=== PATIENT | female | born 1985 | race Caucasian/White ===

== ENCOUNTER 2018-06-21 16:44 | Emergency (ER) | payer OTHER ==
[~2018-06-21] VITALS: Ht 165.1 cm; Wt 104.3 kg
[2018-06-21] MEDS ORDERED: Verotin-Gr Cap1 EACH PO (16:52)
[2018-06-21] MEDS ORDERED: UNISOM25 MG PO (16:52)
[2018-06-21] MEDS ORDERED: Hair, Skin & N1 EACH PO (16:52)
== END 2018-06-21 18:02 | disposition home or self-care (01) ==
LOC: ER 16:44
DX: S61.012A Laceration without foreign body of left thumb without damage to nail, initial encounter (principal); M19.90 Unspecified osteoarthritis, unspecified site; Z91.012 Allergy to eggs; Z91.038 Other insect allergy status; Z79.899 Other long term (current) drug therapy; W26.0XXA Contact with knife, initial encounter
CPT/HCPCS: 12001; 99282-25

== ENCOUNTER 2019-02-16 22:54 | Emergency (ER) | payer OTHER ==
[~2019-02-16 22:54] MED LIST: Hair, Skin & N1 EACH PO; UNISOM25 MG PO; Verotin-Gr Cap1 EACH PO
== END 2019-02-16 23:06 | disposition left against medical advice (07) ==
LOC: ER 22:54
DX: Z53.21 Procedure and treatment not carried out due to patient leaving prior to being seen by health care provider (principal)

== ENCOUNTER → 2019-03-16 | Outpatient (CLI) | payer OTHER ==
[2019-03-18 14:07] LABS: HPV 16 Negative (Negative); HPV 18 Negative (Negative); HPV OTHER HR TYPES Negative (Negative)
== END | disposition home or self-care (01) ==
LOC: LAB SHORT 12:08 → LAB 12:08
PROVIDERS: Obstetrics & Gynecology
DX: Z01.419 Encounter for gynecological examination (general) (routine) without abnormal findings (principal)
CPT/HCPCS: 87624; G0123

== ENCOUNTER → 2020-07-07 | Outpatient (CLI) | payer OTHER ==
[~2020-07-07] MED LIST changes: +ALDACTONE25 MG PO; +AMIT25 PO; +Amitriptyline H10 MG PO; +BANOPHEN25 MG PO; +BIOTIN1 MG PO; +BUTALB-ACETAMI1 EAC5 PO; +BUTALBITAL-ASA1 EACH PO; +CHOLESTYRAMI PO; +CLINGEL; +Camila0.35 MG PO; +EPINEPHRIN0.3 MG/0.1; +EPIPEN 2-P0.3 MG/0.1; +Erythromycin 2%30 GM; +FAMO10 PO; +Finacea50 GM; +KETO15TC; +MELATONIN5 M1 PO; +MULTIPLE VITAM1 EACH PO; +NAPR500 PO; +Naproxen375 M1 PO; +Naproxen375 MG PO; +Norco 5-325 Ta1 EACH PO; +PROM25 PO; +RIZATRIPTAN10 M3 PO; +RIZATRIPTAN10 MG; +RIZATRIPTAN5 MG PO; +SPIR25 PO; +TOPI25 PO; +[UNRECOGNIZED DRUG - OTHER] PO
== END | disposition home or self-care (01) ==
LOC: LAB EV 10:29 → LAB SHORT 10:29
DX: J02.9 Acute pharyngitis, unspecified (principal)
CPT/HCPCS: 87081

== ENCOUNTER 2020-08-27 17:36 | Emergency (ER) | payer OTHER ==
[~2020-08-27] VITALS: Ht 165.1 cm; Wt 108.9 kg
[~2020-08-27 17:36] MED LIST changes: -ALDACTONE25 MG PO; -AMIT25 PO; -Amitriptyline H10 MG PO; -BANOPHEN25 MG PO; -BIOTIN1 MG PO; -BUTALBITAL-ASA1 EACH PO; -CHOLESTYRAMI PO; -CLINGEL; -Camila0.35 MG PO; -EPIPEN 2-P0.3 MG/0.1; -Erythromycin 2%30 GM; -FAMO10 PO; -Finacea50 GM; -KETO15TC; -MULTIPLE VITAM1 EACH PO; -Naproxen375 M1 PO; -Naproxen375 MG PO; -RIZATRIPTAN10 MG; -RIZATRIPTAN5 MG PO; -SPIR25 PO; -TOPI25 PO; -[UNRECOGNIZED DRUG - OTHER] PO
[2020-08-27] MEDS ORDERED: AMIT25 PO (18:10)
[2020-09-04] MEDS ORDERED: BIOTIN1 MG PO (08:34)
[2020-09-04] MEDS ORDERED: [UNRECOGNIZED DRUG - OTHER] PO (08:35)
[2020-09-04] MEDS ORDERED: CHOLESTYRAMI PO (08:35)
[2020-09-04] MEDS ORDERED: BANOPHEN25 MG PO (08:35)
[2020-09-04] MEDS ORDERED: MULTIPLE VITAM1 EACH PO (08:36)
[2020-09-04] MEDS ORDERED: Naproxen375 M1 PO (08:36)
[2020-09-04] MEDS ORDERED: FAMO10 PO (08:36)
[2020-09-04] MEDS ORDERED: MELATONIN5 M1 PO (08:36)
[2020-09-04] MEDS ORDERED: NAPR500 PO (08:37)
[2020-09-04] MEDS ORDERED: RIZATRIPTAN5 MG PO (08:38)
[2020-09-04] MEDS ORDERED: Camila0.35 MG PO (08:38)
[2020-09-04] MEDS ORDERED: SPIR25 PO (08:39)
[2020-09-04] MEDS ORDERED: TOPI25 PO (08:39)
[2020-12-08] MEDS ORDERED: AMIT25 PO (11:50)
[2020-12-08] MEDS ORDERED: Amitriptyline H10 MG PO (11:50)
[2020-12-08] MEDS ORDERED: CLINGEL (11:51)
[2020-12-08] MEDS ORDERED: EPIPEN 2-P0.3 MG/0.1 (11:51)
[2020-12-08] MEDS ORDERED: BUTALBITAL-ASA1 EACH PO (11:51)
[2020-12-08] MEDS ORDERED: Erythromycin 2%30 GM (11:52)
[2020-12-08] MEDS ORDERED: Finacea50 GM (11:52)
[2020-12-08] MEDS ORDERED: Naproxen375 MG PO (11:53)
[2020-12-08] MEDS ORDERED: MELATONIN5 M1 PO (11:53)
[2020-12-08] MEDS ORDERED: KETO15TC (11:53)
[2020-12-08] MEDS ORDERED: RIZATRIPTAN10 MG (11:54)
[2020-12-08] MEDS ORDERED: ALDACTONE25 MG PO (11:55)
== END 2020-08-27 18:38 | disposition home or self-care (01) ==
LOC: ER 17:36
DX: S63.501A Unspecified sprain of right wrist, initial encounter (principal); Z79.899 Other long term (current) drug therapy; Z91.030 Bee allergy status; Z91.012 Allergy to eggs; X50.1XXA Overexertion from prolonged static or awkward postures, initial encounter
CPT/HCPCS: 73610; 99283-25

== ENCOUNTER 2020-09-11 06:27 | Day surgery (SDC) | payer OTHER ==
[~2020-09-11] VITALS: Ht 165.1 cm; Wt 109.6 kg
[~2020-09-11 06:27] MED LIST changes: +AMIT25 PO; +BANOPHEN25 MG PO; +BIOTIN1 MG PO; +CHOLESTYRAMI PO; +Camila0.35 MG PO; +FAMO10 PO; +MULTIPLE VITAM1 EACH PO; +Naproxen375 M1 PO; +RIZATRIPTAN5 MG PO; +SPIR25 PO; +TOPI25 PO; +[UNRECOGNIZED DRUG - OTHER] PO
[2020-09-11] MEDS ORDERED: Amitriptyline H10 MG PO (07:24)
--- NOTE | 2020-09-11 08:10 | NUR ---
09/11/20 0810 Altaf Anton 2% LIDOCAINE WITH EPI 1:100,000 DILUTED WITH 0.9% INJ SALINE 1:1 TO ACHIEVE SOLUTION OF 1% LIDOCAINE WITH EPI 1:200,000.
[2020-12-08] MEDS ORDERED: Amitriptyline H10 MG PO (11:50)
[2020-12-08] MEDS ORDERED: AMIT25 PO (11:50)
[2020-12-08] MEDS ORDERED: BUTALBITAL-ASA1 EACH PO (11:51)
[2020-12-08] MEDS ORDERED: CLINGEL (11:51)
[2020-12-08] MEDS ORDERED: EPIPEN 2-P0.3 MG/0.1 (11:51)
[2020-12-08] MEDS ORDERED: Finacea50 GM (11:52)
[2020-12-08] MEDS ORDERED: Erythromycin 2%30 GM (11:52)
[2020-12-08] MEDS ORDERED: MELATONIN5 M1 PO (11:53)
[2020-12-08] MEDS ORDERED: KETO15TC (11:53)
[2020-12-08] MEDS ORDERED: Naproxen375 MG PO (11:53)
[2020-12-08] MEDS ORDERED: RIZATRIPTAN10 MG (11:54)
[2020-12-08] MEDS ORDERED: ALDACTONE25 MG PO (11:55)
== END 2020-09-11 10:50 | disposition home or self-care (01) ==
LOC: ORSCSDS 06:27
PROVIDERS: Otolaryngology
PROC: 09BL8ZZ Excision of Nasal Turbinate, Via Natural or Artificial Opening Endoscopic (ICD-10-PCS; principal; 2020-09-11 07:30)
PROC: 09BM0ZZ Excision of Nasal Septum, Open Approach (ICD-10-PCS; principal; 2020-09-11 07:30)
DX: J34.2 Deviated nasal septum (principal); J34.3 Hypertrophy of nasal turbinates; F41.9 Anxiety disorder, unspecified; E66.01 Morbid (severe) obesity due to excess calories; Z68.41 Body mass index [BMI] 40.0-44.9, adult; Z79.899 Other long term (current) drug therapy
CPT/HCPCS: J0171; J1100; J2250; J2405; J2704; J2765; J3010; J7120

== ENCOUNTER 2020-12-15 09:33 | Day surgery (SDC) | payer OTHER ==
[~2020-12-15] VITALS: Ht 165.1 cm; Wt 110.5 kg
[~2020-12-15 09:33] MED LIST changes: +ALDACTONE25 MG PO; +Amitriptyline H10 MG PO; +BUTALBITAL-ASA1 EACH PO; +CLINGEL; +EPIPEN 2-P0.3 MG/0.1; +Erythromycin 2%30 GM; +Finacea50 GM; +KETO15TC; +Naproxen375 MG PO; +RIZATRIPTAN10 MG
== END 2020-12-15 11:20 | disposition home or self-care (01) ==
LOC: ORSCSDS 09:33
PROVIDERS: Internal Medicine Gastroenterology
PROC: 0DB68ZX Excision of Stomach, Via Natural or Artificial Opening Endoscopic, Diagnostic (ICD-10-PCS; principal; 2020-12-15 11:15)
PROC: 0DB58ZX Excision of Esophagus, Via Natural or Artificial Opening Endoscopic, Diagnostic (ICD-10-PCS; principal; 2020-12-15 11:15)
PROC: 0D758ZZ Dilation of Esophagus, Via Natural or Artificial Opening Endoscopic (ICD-10-PCS; principal; 2020-12-15 11:15)
DX: K21.00 Gastro-esophageal reflux disease with esophagitis, without bleeding (principal); K22.10 Ulcer of esophagus without bleeding; R19.4 Change in bowel habit; R13.10 Dysphagia, unspecified; K44.9 Diaphragmatic hernia without obstruction or gangrene; Z79.899 Other long term (current) drug therapy
CPT/HCPCS: 88305; 88312; 88342; C1726; J2250; J2704; J7120

== ENCOUNTER 2021-02-16 10:26 | Emergency (ER) | payer OTHER ==
[~2021-02-16] VITALS: Ht 165.1 cm; Wt 108.9 kg
[2021-02-16] MEDS ORDERED: TOPI50 PO (12:30)
[2021-02-16] MEDS ORDERED: CEFD300 PO (12:30)
[2021-02-16] MEDS ORDERED: VENL37.5 PO (12:31)
== END 2021-02-16 13:58 | disposition home or self-care (01) ==
LOC: ER 10:26
DX: H66.92 Otitis media, unspecified, left ear (principal); Z91.038 Other insect allergy status; Z91.048 Other nonmedicinal substance allergy status; Z88.8 Allergy status to other drugs, medicaments and biological substances; Z91.02 Food additives allergy status; Z91.012 Allergy to eggs; Z79.899 Other long term (current) drug therapy
CPT/HCPCS: 70487; 99283-25; Q9967

== ENCOUNTER 2021-05-03 07:23 | Day surgery (SDC) | payer OTHER ==
[~2021-05-03] VITALS: Ht 165.1 cm; Wt 108.0 kg
[~2021-05-03 07:23] MED LIST changes: +BABYBIG100 MG INJ; +CEFD300 PO; +HAIR, SKIN AND1 EAC3 PO; +OMEP20ER PO; +TOPI50 PO; +VENL37.5 PO; +Vitamin C100 M1 PO
--- NOTE | 2021-05-03 08:28 | NUR ---
05/03/21 0828 Milagro Lopez History, Chart, Medications and Allergies reviewed before start of procedure. Patient confirms NPO status and agrees with scheduled surgery. 3-LEAD EKG REVIEWED WITH PHYSICIAN PRIOR TO START OF PROCEDURE. MONITOR INTACT WITH CONTINUOUS PULSE OXIMETRY AND INTERMITTENT BP. PATIENT DETERMINED TO BE ASA APPROPRIATE FOR PROPOFOL SEDATION PRIOR TO START OF PROCEDURE BY DR. VAZQUEZ
--- NOTE | 2021-05-03 09:56 | NUR ---
Patient up to Ambulate independently. Gait steady. Discharge instructions reviewed with patient. Patient verbalizes understanding. Copy given to patient to take home. Patient States Post-Procedure ride home has been arranged. Discharged via wheelchair to private car for ride home. ALL BELONINGS RETURNED TO PATIENT.
== END 2021-05-03 23:30 | disposition home or self-care (01) ==
LOC: ORSCMMR 07:23 → ORD 09:00 → ORSCSDS 11:15 → ORD 11:15 → ORSCMMR 23:30
PROVIDERS: Student in an Organized Health Care Education/Training Program
PROC: 0DB48ZX Excision of Esophagogastric Junction, Via Natural or Artificial Opening Endoscopic, Diagnostic (ICD-10-PCS; principal; 2021-05-03 08:45)
PROC: 0DB58ZX Excision of Esophagus, Via Natural or Artificial Opening Endoscopic, Diagnostic (ICD-10-PCS; principal; 2021-05-03 08:45)
PROC: 0DB78ZX Excision of Stomach, Pylorus, Via Natural or Artificial Opening Endoscopic, Diagnostic (ICD-10-PCS; principal; 2021-05-03 08:45)
PROC: 0DB98ZX Excision of Duodenum, Via Natural or Artificial Opening Endoscopic, Diagnostic (ICD-10-PCS; principal; 2021-05-03 08:45)
DX: K21.9 Gastro-esophageal reflux disease without esophagitis (principal); R13.10 Dysphagia, unspecified; K20.90 Esophagitis, unspecified without bleeding; K44.9 Diaphragmatic hernia without obstruction or gangrene; K29.70 Gastritis, unspecified, without bleeding; Z79.899 Other long term (current) drug therapy
CPT/HCPCS: 88305; 88342; J2250; J2704; J7120

== ENCOUNTER → 2021-10-31 | Outpatient (CLI) | payer OTHER | END | disposition home or self-care (01) | LOC: LAB 13:10 → LAB SHORT 13:10 | DX: G43.909 Migraine, unspecified, not intractable, without status migrainosus (principal) | CPT/HCPCS: 87086 ==

== ENCOUNTER → 2022-04-29 | Outpatient (CLI) | payer OTHER ==
[2022-04-29 14:16] LABS: Candida species (DNA Probe) Negative (NEGATIVE); G. vaginalis (DNA Probe) Negative (NEGATIVE); T. vaginalis (DNA Probe) Negative (NEGATIVE)
== END | disposition home or self-care (01) ==
LOC: LAB 10:04 → LAB SHORT 10:04
PROVIDERS: Obstetrics & Gynecology
DX: N76.0 Acute vaginitis (principal)
CPT/HCPCS: 87480; 87510; 87660

== ENCOUNTER 2022-10-22 10:05 | Observation (INO) | payer OTHER ==
[~2022-10-22] VITALS: Ht 162.6 cm; Wt 114.0 kg
[2022-10-22] VITALS (19 sets, daily range): BP systolic 140–183; BP diastolic 68–96
[2022-10-22 10:49] LABS: BASOPHILS ABSOLUTE AUTO 0.02 K/mm3 (0.00-0.23); BASOPHILS PERCENT AUTO 0 % (0-2); EOSINOPHILS ABSOLUTE AUTO 0.03 K/mm3 (0.00-0.68); EOSINOPHILS PERCENT AUTO 0 % (0-6); Hematocrit 36.9 % (33.0-51.0); Hemoglobin 12.5 g/dL (11.5-16.0); IMMATURE GRAN ABSOLUTE AUTO 0.03 K/mm3 (0.00-0.10); IMMATURE GRAN PERCENT AUTO 0 % (0-1); LYMPHOCYTES PERCENT AUTO 23 % (21-46); MONOCYTES ABSOLUTE AUTO 0.48 K/mm3 (0.16-1.47); MONOCYTES PERCENT AUTO 7 % (4-13); Mean Corpuscular HGB 28.7 pg (26.0-34.0); Mean Corpuscular HGB Conc 33.9 g/dL (31.5-36.5); Mean Corpuscular Volume 85 fL (80-100); Mean Platelet Volume 9.9 fL (9.1-12.4); NEUTROPHILS PERCENT AUTO 69 % (41-73); Platelet Count 167 K/mm3 (150-400); RDW Coefficient Variation 12.8 % (11.7-14.2); RDW Standard Deviation 39.3 fL (35.1-46.3); Red Blood Cell Count 4.36 M/mm3 (3.80-5.20); White Blood Cell Count 6.86 K/mm3 (4.00-11.30)
[2022-10-22 11:06] LABS: Albumin, Blood 2.3 g/dL (3.4-5.0); Albumin/Globulin Ratio 0.6 (0.8-1.8); Bilirubin, Total 0.1 mg/dL (0.1-1.0); Bun/Creatinine Ratio 19.3 (12.0-20.0); Calcium, Blood 8.6 mg/dL (8.5-10.1); Creatinine, Blood 0.47 mg/dL (0.40-1.00); Globulin, Blood 3.6 g/dL (2.2-4.0); Potassium, Blood 3.6 mmol/L (3.5-5.5); Total Protein, Blood 5.9 g/dL (6.4-8.2)
[2022-10-22 11:30] LABS: Creatinine, Urine Random 71.3 mg/dL (27.00-270.00); Protein, Urine Random 12.8 mg/dL (0.0-11.9); Protein/Creat Ratio, Ur Random 0.2
--- NOTE | 2022-10-22 14:26 | NUR ---
PT DECLIING IV SALINE LOCK UNTIL SHE SPEAKS WITH DR PANIAGUA, OR IF HER BP GETS TO SEVERE RANGE.
--- NOTE | 2022-10-22 16:24 | NUR ---
BP RETAKEN, PT HAD BEEN MOVING AND LEGS CROSSED.
[2022-10-22] MEDS ORDERED: LANS30EC PO (16:33)
[2022-10-23 00:23] VITALS: BP 134/64
--- NOTE | 2022-10-23 00:45 | NUR ---
RN DISCUSSED PROVIDER ORDER FOR IV PLACEMENT. PT DECLINES AT THIS TIME
[2022-10-23 05:14] VITALS: BP 139/74
[2022-10-23 05:16] LABS: BASOPHILS ABSOLUTE AUTO 0.02 K/mm3 (0.00-0.23); BASOPHILS PERCENT AUTO 0 % (0-2); EOSINOPHILS ABSOLUTE AUTO 0.04 K/mm3 (0.00-0.68); EOSINOPHILS PERCENT AUTO 1 % (0-6); Hematocrit 36.2 % (33.0-51.0); IMMATURE GRAN ABSOLUTE AUTO 0.04 K/mm3 (0.00-0.10); IMMATURE GRAN PERCENT AUTO 1 % (0-1); LYMPHOCYTES ABSOLUTE AUTO 1.64 K/mm3 (0.84-5.20); LYMPHOCYTES PERCENT AUTO 23 % (21-46); MONOCYTES ABSOLUTE AUTO 0.59 K/mm3 (0.16-1.47); MONOCYTES PERCENT AUTO 8 % (4-13); Mean Corpuscular HGB 28.8 pg (26.0-34.0); Mean Corpuscular HGB Conc 33.1 g/dL (31.5-36.5); Mean Corpuscular Volume 87 fL (80-100); Mean Platelet Volume 9.9 fL (9.1-12.4); NEUTROPHILS ABSOLUTE AUTO 4.93 K/mm3 (1.96-9.15); NEUTROPHILS PERCENT AUTO 68 % (41-73); Platelet Count 158 K/mm3 (150-400); RDW Coefficient Variation 12.9 % (11.7-14.2); RDW Standard Deviation 40.6 fL (35.1-46.3); Red Blood Cell Count 4.17 M/mm3 (3.80-5.20); White Blood Cell Count 7.26 K/mm3 (4.00-11.30)
[2022-10-23 05:53] LABS: Albumin, Blood 2.3 g/dL (3.4-5.0); Albumin/Globulin Ratio 0.7 (0.8-1.8); Bilirubin, Total 0.2 mg/dL (0.1-1.0); Bun/Creatinine Ratio 21.5 (12.0-20.0); Calcium, Blood 8.7 mg/dL (8.5-10.1); Creatinine, Blood 0.56 mg/dL (0.40-1.00); Globulin, Blood 3.3 g/dL (2.2-4.0); Total Protein, Blood 5.6 g/dL (6.4-8.2)
[2022-10-23 06:07] LABS: Protein, Urine Random 11.1 mg/dL (0.0-11.9)
[2022-10-23 06:09] VITALS: BP 140/66
[2022-10-23 06:10] LABS: Creatinine, Urine Random 44.1 mg/dL (27.00-270.00); Protein/Creat Ratio, Ur Random 0.3
[2022-10-23 08:15] VITALS: BP 147/70
== END 2022-10-23 10:25 | disposition home or self-care (01) ==
LOC: OBS 10:05 → BC 10:07 → OBS 12:49 → BC 12:50
PROVIDERS: ADMIT Obstetrics & Gynecology
DX: O10.913 Unspecified pre-existing hypertension complicating pregnancy, third trimester (principal); O24.419 Gestational diabetes mellitus in pregnancy, unspecified control; Z3A.34 34 weeks gestation of pregnancy; O99.891 Other specified diseases and conditions complicating pregnancy; R51.9 Headache, unspecified; R12 Heartburn; O99.353 Diseases of the nervous system complicating pregnancy, third trimester; G47.00 Insomnia, unspecified
CPT/HCPCS: 36415; 59025; 80053; 81003; 82570; 82947; 84156; 85025; A9270; G0378

== ENCOUNTER 2022-11-08 07:14 | Inpatient (IN) | payer OTHER ==
[~2022-11-08] VITALS: Ht 165.1 cm; Wt 115.5 kg
[2022-11-08] VITALS (7 sets, daily range): BP systolic 135–170; BP diastolic 68–96
[~2022-11-08 07:14] MED LIST changes: +LANS30EC PO
[2022-11-08 09:17] LABS: BASOPHILS ABSOLUTE AUTO 0.02 K/mm3 (0.00-0.23); BASOPHILS PERCENT AUTO 0 % (0-2); EOSINOPHILS ABSOLUTE AUTO 0.06 K/mm3 (0.00-0.68); EOSINOPHILS PERCENT AUTO 1 % (0-6); Hematocrit 36.5 % (33.0-51.0); Hemoglobin 12.4 g/dL (11.5-16.0); Mean Corpuscular HGB 28.8 pg (26.0-34.0); Mean Corpuscular Volume 85 fL (80-100); Mean Platelet Volume 10.5 fL (9.1-12.4); Platelet Count 175 K/mm3 (150-400); RDW Coefficient Variation 13.2 % (11.7-14.2); RDW Standard Deviation 40.6 fL (35.1-46.3); Red Blood Cell Count 4.31 M/mm3 (3.80-5.20); White Blood Cell Count 7.02 K/mm3 (4.00-11.30)
[2022-11-08 09:19] LABS: IMMATURE GRAN ABSOLUTE AUTO 0.06 K/mm3 (0.00-0.10); IMMATURE GRAN PERCENT AUTO 1 % (0-1); LYMPHOCYTES ABSOLUTE AUTO 1.79 K/mm3 (0.84-5.20); LYMPHOCYTES PERCENT AUTO 26 % (21-46); MONOCYTES ABSOLUTE AUTO 0.43 K/mm3 (0.16-1.47); MONOCYTES PERCENT AUTO 6 % (4-13); NEUTROPHILS ABSOLUTE AUTO 4.66 K/mm3 (1.96-9.15); NEUTROPHILS PERCENT AUTO 66 % (41-73)
--- NOTE | 2022-11-08 22:34 | NUR ---
PT REQUESTING THAT LABS AND MATERNAL SCREEN BE DRAWN TOMORROW, 11/09/22, AT 0700. RN EDUCATED PT ON IMPORTANCE OF RHOGAM . PT WOULD LIKE TO MOVE FORWARD WITH LABS AT 0700 AND RHOGAM AFTER MATERNAL SCREEN IS DRAWN.
[2022-11-09] VITALS (9 sets, daily range): BP systolic 121–169; BP diastolic 58–81
--- NOTE | 2022-11-09 03:42 | NUR ---
PT COMPLAINING OF UC CRAMPS. RN OFFERED HEATING PAD, PT DECLINES. RN SUGGESTED PT TRY VOIDING, PT AGREEABLE.
[2022-11-09 05:14] LABS: Hematocrit 31.7 % (33.0-51.0); Hemoglobin 10.6 g/dL (11.5-16.0); Mean Corpuscular HGB 28.8 pg (26.0-34.0); Mean Corpuscular HGB Conc 33.4 g/dL (31.5-36.5); Mean Corpuscular Volume 86 fL (80-100); Mean Platelet Volume 10.4 fL (9.1-12.4); Platelet Count 167 K/mm3 (150-400); RDW Coefficient Variation 13.2 % (11.7-14.2); RDW Standard Deviation 41.1 fL (35.1-46.3); Red Blood Cell Count 3.68 M/mm3 (3.80-5.20); White Blood Cell Count 9.51 K/mm3 (4.00-11.30)
--- NOTE | 2022-11-09 13:26 | NUR ---
11/09/22 0800 AND KIDS CAME IN TO JOIN PT FOR BREAKFAST, PT NOTICABLY MORE ANXIOUS WITH KIDS AROUND BABY AND IRRITATED WHEN BP CUFF INFLATING , SHE HAD TO BE TOLD MULTPLE TIMES TO RELAX ARM OR IT WOULD CONTINUE TO PUMP UP, AND AFTER BP DONE SHE RIPPED CUFF OFF HER ARM. 0950 ENCOURAGED PT YO TAKE HER OWN LABETOLOL EARLY, SHE SAID HER DOSE WAS DUE AT 11AM, AND BOYS TO GO HOME FOR AWHILE AND SHE PLANS TO REST.
[2022-11-09 14:00] LABS: Alanine Aminotransfer (ALT/SGP 30 U/L (12-78); Albumin, Blood 2.1 g/dL (3.4-5.0); Albumin/Globulin Ratio 0.7 (0.8-1.8); Alk Phos 162 U/L (50-136); Anion Gap 7 mmol/L (6-16); Aspartate Aminotrans (AST/SGOT 29 U/L (12-37); Bilirubin, Total <0.1 mg/dL (0.1-1.0); Blood Urea Nitrogen 13 mg/dL (8-24); Bun/Creatinine Ratio 21.6 (12.0-20.0); CO2, Blood 24 mmol/L (21-32); Calcium, Blood 8.9 mg/dL (8.5-10.1); Chloride, Blood 109 mmol/L (98-108); Glomerular Filtration Rate 120 (60-); Glucose, Blood 128 mg/dL (70-99); Potassium, Blood 4.1 mmol/L (3.5-5.5); Sodium, Blood 140 mmol/L (136-145); Total Protein, Blood 5.1 g/dL (6.4-8.2)
== END 2022-11-09 18:58 | disposition home or self-care (01) | DRG 807 ==
LOC: OBS 07:14 → BC 07:22
PROVIDERS: ADMIT Obstetrics & Gynecology
PROC: 10E0XZZ Delivery of Products of Conception, External Approach (ICD-10-PCS; principal; 2022-11-08)
PROC: 0HQ9XZZ Repair Perineum Skin, External Approach (ICD-10-PCS; 2022-11-08)
PROC: 10907ZC Drainage of Amniotic Fluid, Therapeutic from Products of Conception, Via Natural or Artificial Opening (ICD-10-PCS; 2022-11-08)
DX: O13.4 Gestational [pregnancy-induced] hypertension without significant proteinuria, complicating childbirth (principal); Z37.0 Single live birth; O99.214 Obesity complicating childbirth; E66.9 Obesity, unspecified; O24.429 Gestational diabetes mellitus in childbirth, unspecified control; O34.211 Maternal care for low transverse scar from previous cesarean delivery; O99.344 Other mental disorders complicating childbirth; F41.9 Anxiety disorder, unspecified; F32.A Depression, unspecified; O70.0 First degree perineal laceration during delivery; Z3A.37 37 weeks gestation of pregnancy; Z67.41 Type O blood, Rh negative; Z90.49 Acquired absence of other specified parts of digestive tract; Z98.890 Other specified postprocedural states; Z88.0 Allergy status to penicillin; Z88.8 Allergy status to other drugs, medicaments and biological substances; Z91.030 Bee allergy status; Z91.012 Allergy to eggs; Z91.038 Other insect allergy status; Z79.899 Other long term (current) drug therapy; Z79.51 Long term (current) use of inhaled steroids; Z79.82 Long term (current) use of aspirin; Z86.19 Personal history of other infectious and parasitic diseases; Z91.014 Allergy to mammalian meats; Z85.820 Personal history of malignant melanoma of skin
CPT/HCPCS: 36415; 80053; 85025; 85027; 85460; 86850; 86900; 86901; 96372; A9270; C1751; J0690; J1885; J2210; J2590; J2791; J3010; J7120

== ENCOUNTER 2023-04-14 09:21 | Day surgery (SDC) | payer OTHER ==
[~2023-04-14] VITALS: Ht 165.1 cm; Wt 105.8 kg
[2023-04-14] MEDS ORDERED: VENL75ER PO (10:00)
[2023-04-14 11:51] VITALS: BP 138/87
== END 2023-04-14 11:27 | disposition home or self-care (01) ==
LOC: ORSCSDS 09:21
PROVIDERS: Internal Medicine Gastroenterology
PROC: 0DB58ZX Excision of Esophagus, Via Natural or Artificial Opening Endoscopic, Diagnostic (ICD-10-PCS; principal; 2023-04-14 10:30)
PROC: 0D757ZZ Dilation of Esophagus, Via Natural or Artificial Opening (ICD-10-PCS; principal; 2023-04-14 10:30)
DX: K22.70 Barrett's esophagus without dysplasia (principal); K21.9 Gastro-esophageal reflux disease without esophagitis; R13.10 Dysphagia, unspecified; R19.4 Change in bowel habit; F41.9 Anxiety disorder, unspecified; J45.909 Unspecified asthma, uncomplicated; Z68.39 Body mass index [BMI] 39.0-39.9, adult; Z79.899 Other long term (current) drug therapy
CPT/HCPCS: 88305; J2001; J2704; J7120

== ENCOUNTER → 2023-06-24 | Outpatient (CLI) | payer OTHER ==
[~2023-06-24] MED LIST changes: +VENL75ER PO
== END ==
LOC: LAB SHORT 14:25 → LAB 14:25
DX: L01.02 Bockhart's impetigo (principal)
CPT/HCPCS: 88305

== ENCOUNTER 2023-10-15 10:39 | Day surgery (SDC) | payer OTHER ==
[~2023-10-15] VITALS: Ht 165.1 cm; Wt 109.8 kg
[2023-10-15] MEDS ORDERED: Lactated Ringer's 1,000 ML IV ONE ×2 (11:36→11:45)
[2023-10-15] MEDS ORDERED: NS 50 ML IV ONE (11:36)
[2023-10-15] MEDS ORDERED: CeFAZolin Sodium 2,000 MG VIAL ONE (11:36)
[2023-10-15] MEDS ORDERED: FentaNYL Citrate 50 MCG/ML 2 ML Injection ONE ×2 (12:42→13:48)
[2023-10-15] MEDS ORDERED: Midazolam HCl 1MG / ML 2ML Vial ONE (12:42)
[2023-10-15] MEDS ORDERED: propofoL 20 ML IV ONE ×2 (12:42→13:13)
[2023-10-15] MEDS ORDERED: Lidocaine HCl 2% 10 ML SDA ONE (12:54)
[2023-10-15] MEDS ORDERED: Ondansetron HCl 2 MG / ML 2ML Vial ONE ×2 (13:48→14:30)
--- NOTE | 2023-10-15 13:55 | NUR ---
10/15/23 1355 FARA ROUSE NAUSEA IS GONE AFTER DRINKING WATER.
[2023-10-15 14:58] VITALS: BP 160/105
== END 2023-10-15 14:54 | disposition home or self-care (01) ==
LOC: ORSCSDS 10:39
PROVIDERS: Orthopaedic Surgery
PROC: 01N54ZZ Release Median Nerve, Percutaneous Endoscopic Approach (ICD-10-PCS; principal; 2023-10-15 11:45)
PROC: 0LN50ZZ Release Right Lower Arm and Wrist Tendon, Open Approach (ICD-10-PCS; principal; 2023-10-15 11:45)
PROC: 0LN70ZZ Release Right Hand Tendon, Open Approach (ICD-10-PCS; principal; 2023-10-15 11:45)
DX: G56.03 Carpal tunnel syndrome, bilateral upper limbs (principal); M65.311 Trigger thumb, right thumb; M65.4 Radial styloid tenosynovitis [de Quervain]; I10 Essential (primary) hypertension; J45.909 Unspecified asthma, uncomplicated; K21.9 Gastro-esophageal reflux disease without esophagitis; G47.33 Obstructive sleep apnea (adult) (pediatric); F41.9 Anxiety disorder, unspecified; E66.01 Morbid (severe) obesity due to excess calories; Z68.41 Body mass index [BMI] 40.0-44.9, adult; Z79.899 Other long term (current) drug therapy
CPT/HCPCS: J0690; J2001; J2250; J2405; J2704; J3010; J7120

== ENCOUNTER → 2024-03-09 | Outpatient (CLI) | payer OTHER ==
[2024-03-18 08:17] LABS: HPV HIGH RISK BY TMA Not Detected; HPV SOURCE Cervical
== END ==
LOC: LAB SHORT 15:11 → LAB 15:11
PROVIDERS: Advanced Practice Midwife
DX: Z01.419 Encounter for gynecological examination (general) (routine) without abnormal findings (principal)
CPT/HCPCS: 87624; G0123

== ENCOUNTER → 2024-07-16 | Outpatient (CLI) | payer OTHER ==
[2024-07-16 08:14] LABS: BASOPHILS ABSOLUTE AUTO 0.02 K/mm3 (0.00-0.23); BASOPHILS PERCENT AUTO 0 % (0-2); EOSINOPHILS ABSOLUTE AUTO 0.02 K/mm3 (0.00-0.68); EOSINOPHILS PERCENT AUTO 0 % (0-6); Hematocrit 42.8 % (33.0-51.0); Hemoglobin 14.5 g/dL (11.5-16.0); IMMATURE GRAN ABSOLUTE AUTO 0.02 K/mm3 (0.00-0.10); IMMATURE GRAN PERCENT AUTO 0 % (0-1); LYMPHOCYTES PERCENT AUTO 14 % (21-46); MONOCYTES ABSOLUTE AUTO 0.22 K/mm3 (0.16-1.47); MONOCYTES PERCENT AUTO 3 % (4-13); Mean Corpuscular HGB 28.4 pg (26.0-34.0); Mean Corpuscular HGB Conc 33.9 g/dL (31.5-36.5); Mean Corpuscular Volume 84 fL (80-100); Mean Platelet Volume 9.1 fL (9.1-12.4); NEUTROPHILS ABSOLUTE AUTO 6.54 K/mm3 (1.96-9.15); NEUTROPHILS PERCENT AUTO 82 % (41-73); Platelet Count 227 K/mm3 (150-400); RDW Coefficient Variation 12.8 % (11.7-14.2); RDW Standard Deviation 38.9 fL (35.1-46.3); Red Blood Cell Count 5.11 M/mm3 (3.80-5.20); White Blood Cell Count 7.92 K/mm3 (4.00-11.30)
[2024-07-16 08:44] LABS: Albumin, Blood 4.1 g/dL (3.4-5.0); Albumin/Globulin Ratio 1.2 (0.8-1.8); Bilirubin, Total 0.4 mg/dL (0.1-1.0); Bun/Creatinine Ratio 18.1 (12.0-20.0); Calcium, Blood 8.9 mg/dL (8.5-10.1); Creatinine, Blood 0.72 mg/dL (0.40-1.00); Globulin, Blood 3.4 g/dL (2.2-4.0); Potassium, Blood 3.6 mmol/L (3.5-5.5); Total Protein, Blood 7.5 g/dL (6.4-8.2)
== END | disposition home or self-care (01) ==
LOC: LAB 08:07 → LAB SHORT 08:07
PROVIDERS: Emergency Medicine
DX: K92.1 Melena (principal)
CPT/HCPCS: 80053; 83690; 85025

== ENCOUNTER → 2025-04-05 | Outpatient (CLI) | payer OTHER ==
[~2025-04-05] MED LIST changes: +CEPH500 PO; +ONDA4ODT MM; +PHENA200 PO
[2025-04-05 10:49] LABS: BASOPHILS ABSOLUTE AUTO 0.02 K/mm3 (0.00-0.23); BASOPHILS PERCENT AUTO 0 % (0-2); EOSINOPHILS ABSOLUTE AUTO 0.02 K/mm3 (0.00-0.68); EOSINOPHILS PERCENT AUTO 0 % (0-6); Hematocrit 42.6 % (33.0-51.0); Hemoglobin 14.6 g/dL (11.5-16.0); IMMATURE GRAN ABSOLUTE AUTO 0.02 K/mm3 (0.00-0.10); IMMATURE GRAN PERCENT AUTO 0 % (0-1); LYMPHOCYTES ABSOLUTE AUTO 1.27 K/mm3 (0.84-5.20); LYMPHOCYTES PERCENT AUTO 16 % (21-46); MONOCYTES ABSOLUTE AUTO 0.33 K/mm3 (0.16-1.47); MONOCYTES PERCENT AUTO 4 % (4-13); Mean Corpuscular HGB Conc 34.3 g/dL (31.5-36.5); Mean Corpuscular Volume 82 fL (80-100); NEUTROPHILS ABSOLUTE AUTO 6.53 K/mm3 (1.96-9.15); NEUTROPHILS PERCENT AUTO 80 % (41-73); NRBC ABSOLUTE 0.00 K/mm3 (0.00-0.02); NRBC Auto 0.0 /100 WBC (0.0-0.2); Platelet Count 259 K/mm3 (150-400); RDW Coefficient Variation 12.9 % (11.7-14.2); RDW Standard Deviation 38.5 fL (35.1-46.3)
[2025-04-05 10:59] LABS: Alanine Aminotransfer (ALT/SGP 58.0 U/L (12-78); Albumin, Blood 4.2 g/dL (3.4-5.0); Albumin/Globulin Ratio 1.2 (0.8-1.8); Anion Gap 15.0 mmol/L (3-11); Aspartate Aminotrans (AST/SGOT 25.0 U/L (12-37); Bilirubin, Total 0.4 mg/dL (0.1-1.0); Blood Urea Nitrogen 11.0 mg/dL (8-24); CO2, Blood 26.0 mmol/L (21-32); Calcium, Blood 9.2 mg/dL (8.5-10.1); Chloride, Blood 102.0 mmol/L (98-108); Creatinine, Blood 0.6 mg/dL (0.40-1.00); Globulin, Blood 3.5 g/dL (2.2-4.0); Glucose, Blood 112.0 mg/dL (70-99); Potassium, Blood 3.5 mmol/L (3.5-5.5); Sodium, Blood 139.0 mmol/L (136-145); Total Protein, Blood 7.7 g/dL (6.4-8.2)
== END ==
LOC: LAB SHORT 10:45 → LAB 10:45
PROVIDERS: Physician Assistant
DX: R07.9 Chest pain, unspecified (principal)
CPT/HCPCS: 80053; 84484; 85025; 85379